=== PATIENT | male | born 1950 | race Caucasian/White ===

== ENCOUNTER 2019-03-31 19:33 | Inpatient (IN) | payer MEDICARE, OTHER ==
[~2019-03-31] VITALS: Ht 162.6 cm; Wt 53.5 kg
[2019-03-31] MEDS ORDERED: morphine 4 MG/ML VIAL IV STA (22:50)
[2019-03-31] MEDS ORDERED: ONDANSETRON 4 MG INJ IV STA (22:50)
[2019-03-31] MEDS ORDERED: SOD CHLORIDE 0.9% 500 ML IV STA (22:50)
--- NOTE | 2019-04-01 02:12 | ERD ---
ER Documentation Chief Complaint Chief Complaint REFFERED FROM CLINIC FOR ACUTE ABD PAIN X'S 1 DAY HPI This very pleasant 68-year-old male referred from his primary care clinic for acute abdominal pain for the past 24 hours. Patient has history of multiple bowel obstruction secondary to colonic anastomosis from Crohn's disease. Pain began approximately 36 hours ago and is gotten progressively worse. Associated nausea and vomiting which is nonbilious and nonbloody. No fevers no chills. No other current complaints. Abdominal pain was diffuse, nonlocalizing with no exacerbating alleviating factors mild to moderate in intensity. ROS All systems reviewed and are negative except as per history of present illness. Allergies Allergies: Coded Allergies: No Known Allergy (Unverified , 03/31/19) PMhx/Soc History of Surgery: No Anesthesia Reaction: No Hx Neurological Disorder: No Hx Respiratory Disorders: No Hx Cardiac Disorders: No Hx Psychiatric Problems: No Hx Alcohol Use: No Hx Substance Use: No Hx Tobacco Use: No Smoking Status: Never smoker Physical Exam Vitals Vital Signs Date Temp Pulse Resp B/P (MAP) Pulse Ox O2 O2 Flow FiO2 Time Delivery Rate 03/31/19 97.4 48 18 109/64 100 19:40 (79) Physical Exam Const: No acute distress Head: Atraumatic Eyes: Normal Conjunctiva ENT: Normal External Ears, Nose and Mouth. Neck: Full range of motion. No meningismus. Resp: Clear to auscultation bilaterally Cardio: Regular rate and rhythm, no murmurs Abd: Soft, non tender, non distended. Normal bowel sounds Skin: No petechiae or rashes Back: No midline or flank tenderness Ext: No cyanosis, or edema Neur: Awake and alert Psych: Normal Mood and Affect Result Diagram: 03/31/19 2304 03/31/19 230 Results 24 hrs Laboratory Tests Test 03/31/19 23:04 White Blood Count 11.2 10^3/ul Red Blood Count 4.86 10^6/ul Hemoglobin 16.3 g/dl Hematocrit 46.6 % Mean Corpuscular Volume 95.9 fl Mean Corpuscular Hemoglobin 33.5 pg Mean Corpuscular Hemoglobin Concent 35.0 g/dl Red Cell Distribution Width 12.7 % Platelet Count 361 10^3/UL Mean Platelet Volume 9.3 fl Immature Granulocytes % 0.400 % Neutrophils % 85.6 % Lymphocytes % 10.0 % Monocytes % 3.6 % Eosinophils % 0.0 % Basophils % 0.4 % Nucleated Red Blood Cells % 0.0 /100WBC Immature Granulocytes # 0.040 10^3/ul Neutrophils # 9.6 10^3/ul Lymphocytes # 1.1 10^3/ul Monocytes # 0.4 10^3/ul Eosinophils # 0.0 10^3/ul Basophils # 0.1 10^3/ul Nucleated Red Blood Cells # 0.0 10^3/ul Urine Color PATRICIO Urine Clarity SLIGHTLY CLOUDY Urine pH 5.0 Urine Specific [place] 1.033 Urine Ketones 1+ mg/dL Urine Nitrite NEGATIVE mg/dL Urine Bilirubin NEGATIVE mg/dL Urine Urobilinogen 1+ mg/dL Urine Leukocyte Esterase NEGATIVE Sandy/ul Urine Microscopic RBC 1 /HPF Urine Microscopic WBC 0 /HPF Urine Mucus MANY /HPF Urine Hemoglobin NEGATIVE mg/dL Urine Glucose NEGATIVE mg/dL Urine Total Protein 1+ mg/dl Sodium Level 138 mmol/L Potassium Level 4.1 mmol/L Chloride Level 102 mmol/L Carbon Dioxide Level 29 mmol/L Anion Gap 7 Blood Urea Nitrogen 17 mg/dl Creatinine 0.78 mg/dl Est Glomerular Filtrat Rate mL/min > 60 mL/min Glucose Level 123 mg/dl Lactic Acid Level 1.0 mmol/L Calcium Level 9.6 mg/dl Total Bilirubin 0.6 mg/dl Direct Bilirubin 0.00 mg/dl Indirect Bilirubin 0.6 mg/dl Aspartate Amino Transf (AST/SGOT) 34 IU/L Alanine Aminotransferase (ALT/SGPT) 25 IU/L Alkaline Phosphatase 82 IU/L Troponin I < 0.012 ng/ml Total Protein 7.4 g/dl Albumin 4.3 g/dl Globulin 3.10 g/dl Albumin/Globulin Ratio 1.38 Lipase 51 U/L Current Medications Medications Dose Sig/Juancarlos Start Time Status Last (Trade) Ordered Route PRN Stop Time Admin Dose Reason Admin Sodium 500 ml @ Q1H STAT 03/31/19 DC 03/31/19 Chloride 500 mls/hr IV 22:50 23:19 03/31/19 23:49 Morphine 4 mg ONCE STAT 03/31/19 DC 03/31/19 Sulfate IV 22:50 23:04 (morphine) 03/31/19 22:51 Ondansetron 4 mg ONCE STAT 03/31/19 DC 03/31/19 HCl (Zofran IV 22:50 23:04 Inj) 03/31/19 22:51 Procedures/MDM EKG: Rate/Rhythm: Normal Sinus Rhythm QRS, ST, T-waves: No changes consistent w/ acute ischemia Impression: No evidence of ischemia or arrhythmia Chest X-ray 1V Interpreted by me: Soft Tissue: No acute abnormalities Bones: No acute abnormalities Mediastinum/Cardiac Silhouette/Lungs: No acute abnormalities Medical decision makin-year-old male with evidence of small bowel obstruction on CAT scan which was what I was suspicious of given the patient's history. Patient has been admitted to Dr. Woodruff with on-call surgery consulted Dr. Yoder. NG tube has also been placed Departure Diagnosis: Primary Impression: Small bowel obstruction Condition: Serious LAURA MATOS April 01, 2019 02:12
[2019-04-01] MEDS ORDERED: UDMYL PO (03:17)
[2019-04-01] MEDS ORDERED: ALKA PO (03:17)
[2019-04-01] MEDS ORDERED: ONDANSETRON 4 MG INJ IV STA (04:28)
[2019-04-01] MEDS ORDERED: LIDOCAINE 2% VISC 15 ML CUP PO ONE (04:30)
[2019-04-01 05:15] VITALS: Ht 162.6 cm; Wt 53.5 kg
[2019-04-01] MEDS ORDERED: ONDANSETRON 4 MG INJ IV PRN (06:00)
[2019-04-01 06:13] VITALS: BP 92/56; PULSE 54; RESP 18
[2019-04-01] MEDS: SOD CHLORIDE 0.9% 1,000 ML IV SCH ×2 (06:17→16:10)
[2019-04-01 07:45] VITALS: BP 101/59; PULSE 51; RESP 18
--- NOTE | 2019-04-01 12:14 | HP ---
Date/Time of Note Date/Time of Note DATE: 04/01/19 TIME: 12:04 Assessment/Plan VTE Prophylaxis Risk score (from Ns)>0 risk: 3 SCD applied (from Ns): Yes Pharmacological prophylaxis: NA/contraindicated Pharm contraindication: surgical contra Lines/Catheters IV Catheter Type (from Nrsg): Peripheral IV Assessment/Plan Assessment/Plan -Small bowel obstruction. Continue NG tube to low wall suctioning. Continue IV fluids. Morphine as needed for pain and Zofran as needed for nausea. Dr. Yoder is following in general surgery consultation. Dr. Hamilton is asked to see patient in gastroenterology consultation. -History of Crohn's disease, status post small bowel resection. Further recommendations based on clinical course. Plan of care discussed with Dr. Espitia. Result Diagram: 04/01/19 0647 04/01/19 0648 Results 24hrs Laboratory Tests Test 03/31/19 23:04 04/01/19 06:47 04/01/19 06:48 White Blood Count 11.2 H 8.3 # Red Blood Count 4.86 4.26 L Hemoglobin 16.3 14.3 Hematocrit 46.6 41.3 L Mean Corpuscular Volume 95.9 96.9 Mean Corpuscular Hemoglobin 33.5 H 33.6 H Mean Corpuscular 35.0 34.6 Hemoglobin Concent Red Cell Distribution Width 12.7 13.2 Platelet Count 361 294 Mean Platelet Volume 9.3 9.1 Immature Granulocytes % 0.400 0.200 Neutrophils % 85.6 H 77.6 H Lymphocytes % 10.0 L 13.2 L Monocytes % 3.6 7.6 Eosinophils % 0.0 0.6 Basophils % 0.4 0.8 Nucleated Red Blood Cells % 0.0 0.0 Immature Granulocytes # 0.040 H 0.020 Neutrophils # 9.6 H 6.4 Lymphocytes # 1.1 1.1 Monocytes # 0.4 0.6 Eosinophils # 0.0 0.1 Basophils # 0.1 0.1 Nucleated Red Blood Cells # 0.0 0.0 Urine Color PATRICIO Urine Clarity SLIGHTLY CLOUDY A Urine pH 5.0 Urine Specific [place] 1.033 H Urine Ketones 1+ H Urine Nitrite NEGATIVE Urine Bilirubin NEGATIVE Urine Urobilinogen 1+ H Urine Leukocyte Esterase NEGATIVE Urine Microscopic RBC 1 Urine Microscopic WBC 0 Urine Mucus MANY A Urine Hemoglobin NEGATIVE Urine Glucose NEGATIVE Urine Total Protein 1+ H Sodium Level 138 141 Potassium Level 4.1 3.7 Chloride Level 102 107 Carbon Dioxide Level 29 30 Anion Gap 7 4 L Blood Urea Nitrogen 17 15 Creatinine 0.78 0.69 Est Glomerular Filtrat > 60 > 60 Rate mL/min Glucose Level 123 94 Lactic Acid Level 1.0 Calcium Level 9.6 8.5 Total Bilirubin 0.6 Direct Bilirubin 0.00 Indirect Bilirubin 0.6 Aspartate Amino 34 Transf (AST/SGOT) Alanine 25 Aminotransferase (ALT/SGPT) Alkaline Phosphatase 82 Troponin I < 0.012 Total Protein 7.4 Albumin 4.3 Globulin 3.10 Albumin/Globulin Ratio 1.38 Lipase 51 HPI/ROS Admit Date/Time Admit Date/Time April 01, 2019 at 01:39 Hx of Present Illness The patient is 68-year-old gentleman who was sent from primary care clinic for abdominal pain that patient developed in the past 48 hours ago which got progressively worse. Abdominal pain was diffuse, nonlocalizing with no exacerbating alleviating factors mild to moderate in intensity. Patient was di agnosed with Crohn's disease 6 years ago and underwent surgery. Patient has a history of multiple bowel obstruction in the past. Patient complains of nausea and vomiting. Patient denies any fever chills, denies any chest pain, denies shortness of breath. CT of the abdomen revealed small bowel obstruction at level of small bowel colonic anastomosis, stones are seen within the small bowel in the deep pelvis. Patient is admitted for further evaluation and management. ROS 12 point review of system is negative except for what mentioned in HPI PMH/Family/Social Past Medical History Medical History: other (Crohn's disease) Medications Current Medications Sodium Chloride 1,000 ml @ 100 mls/hr Q10H IV Last administered on 04/01/19at 06:17; Admin Dose 100 MLS/HR; Start 04/01/19 at 06:00 Morphine Sulfate (morphine) 2 mg Q4H PRN IV SEVERE PAIN LEVEL 7-10; Start 04/01/19 at 06:00 Ondansetron HCl (Zofran Inj) 4 mg Q6H PRN IV NAUSEA AND/OR VOMITING; Start 04/01/19 at 06:00 Coded Allergies: No Known Allergy (Unverified , 03/31/19) Past Surgical History Past Surgical Hx: other (Status post small bowel resection 6 years ago) Family History Significant Family History: no pertinent family hx Social History Alcohol Use: none Smoking Status: Never smoker Drug Use: none Exam/Review of Systems Vital Signs Vitals Vital Signs Date Temp Pulse Resp B/P (MAP) Pulse Ox O2 O2 Flow FiO2 Time Delivery Rate 04/01/19 98.9 51 18 101/59 99 07:45 (73) 04/01/19 Room Air 06:13 Exam Constitutional: alert, oriented Head: normocephalic Neck: supple Respiratory: clear to auscultation Cardiovascular: nl pulses Gastrointestinal: soft, tender Musculoskeletal: nl extremities to inspection Extremities: normal pulses Neurological: nl mental status PRITI SÁNCHEZ April 01, 2019 12:14
--- NOTE | 2019-04-01 12:39 | CONS ---
Assessment/Plan Assessment/Plan Hospital Course (Demo Recall) Summary Assessment and Plan: Assessment: Small bowel obstruction at level of small bowel colonic anastomosis -query if obstruction is 2/2 to CD or adhesions/stircture given findings thus far only show narrowing at anastomotic site Stones within the small bowel -Query Bilio-enteric fistula- however CT shows unremarkable gallbladder with normal LFTs- thus unlikely -Patient denies PICA Questionable history of Crohn's disease- untreated -Per patient dx 6 years ago Previous small bowel resection Plan: Solu-med 30 mg IV BID- will start steroid therapy- if no improvement obstruction may be 2.2 to adhesions vs stricture at anastomotic site. SBFT to further assess obstruction Will check CRP/ESR Further recommendations based on clinical course Patient seen in collaboration with Dr. Hamilton CC: LUDIN HAMILTON MD ; Consultation Date/Type/Reason Admit Date/Time April 01, 2019 at 01:39 Date of Consultation: April 01, 2019 Type of Consult GI Reason for Consultation SBO History of Crohn's disease Date/Time of Note DATE: 04/01/19 TIME: 12:36 Hx of Present Illness This is a 68-year-old male with reported past medical history of Crohn's disease untreated. Patient states he was diagnosed about 6 years ago after MRI?. Patient states he additionally had a colonoscopy he currently does not follow with a GI physician and has never been treated for Crohn's disease. He also has a history of small bowel obstruction with small bowel resection also 6 years ago. Patient presented to the ED with complaints of abdominal pain. He had a CT abdomen pelvis without contrast showing small bowel obstruction at small bowel and colonic anastomosis additionally there were stones seen in the small bowel. Patient without anemia LFTs are within normal limits. NG tube has been placed currently patient denies nausea/vomiting abdominal pain has improved. Prior to admission patient denies diarrhea, unintentional weight loss, tenesmus, or overt signs of GI bleed i.e. melena, hematochezia or hematemesis. Patient states his last bowel movement was yesterday described as formed and brown. Currently he is not passing any flatus Review of Systems: A 12 system, review was conducted and is negative except as noted in the HPI or here. Past Medical History Medical History: other (Crohn's disease) Home Meds Reported Medications Aspirin ([place]ily[place]) 1 Tab Tabef, 1 TAB PO, TAB 04/01/19 Magaldrate/Simethicone* (Mag-Al Plus Suspension*) 30 Ml Oral.susp, 30 ML PO Q6H PRN for GASTROINTESTINAL UPSET, ML 04/01/19 Medications Current Medications Sodium Chloride 1,000 ml @ 100 mls/hr Q10H IV Last administered on 04/01/19at 06:17; Admin Dose 100 MLS/HR; Start 04/01/19 at 06:00 Morphine Sulfate (morphine) 2 mg Q4H PRN IV SEVERE PAIN LEVEL 7-10; Start 04/01/19 at 06:00 Ondansetron HCl (Zofran Inj) 4 mg Q6H PRN IV NAUSEA AND/OR VOMITING; Start 04/01/19 at 06:00 Allergies: Coded Allergies: No Known Allergy (Unverified , 03/31/19) Past Surgical History Past Surgical Hx: other (Status post small bowel resection 6 years ago) Social History Alcohol Use: none Smoking Status: Never smoker Drug Use: none Exam/Review of Systems Exam Vitals Vital Signs Date Temp Pulse Resp B/P (MAP) Pulse Ox O2 O2 Flow FiO2 Time Delivery Rate 04/01/19 98.9 51 18 101/59 99 07:45 (73) 04/01/19 Room Air 06:13 Exam PHYSICAL EXAMINATION: GENERAL: Well developed, well nourished, alert & oriented x 3, in no acute distress SKIN: No lesions HEAD: Normocephalic, atraumatic, no tenderness. EYES: Pupils equal reactive to light and accommodation, no discharge. EARS/NOSE AND THROAT: Ears normal, nose normal.NGT in palce NECK: Supple, no masses. CHEST: Inspection within normal limits. CARDIOVASCULAR: Heart: Regular rate and rhythm GASTROINTESTINAL AND LIVER: Abdomen: Soft, non tenderness, non-distended, no hernias, no masses, no organomegaly, no ascites, no guarding, no rebound tenderness, hypoactive bowel sounds. Rectal: Deferred. EXTREMITIES: No cyanosis, clubbing or edema. Results Result Diagram: 04/01/19 0647 04/01/19 0648 Results 24hrs Laboratory Tests Test 03/31/19 23:04 04/01/19 06:47 04/01/19 06:48 White Blood Count 11.2 H 8.3 # Red Blood Count 4.86 4.26 L Hemoglobin 16.3 14.3 Hematocrit 46.6 41.3 L Mean Corpuscular Volume 95.9 96.9 Mean Corpuscular Hemoglobin 33.5 H 33.6 H Mean Corpuscular 35.0 34.6 Hemoglobin Concent Red Cell Distribution Width 12.7 13.2 Platelet Count 361 294 Mean Platelet Volume 9.3 9.1 Immature Granulocytes % 0.400 0.200 Neutrophils % 85.6 H 77.6 H Lymphocytes % 10.0 L 13.2 L Monocytes % 3.6 7.6 Eosinophils % 0.0 0.6 Basophils % 0.4 0.8 Nucleated Red Blood Cells % 0.0 0.0 Immature Granulocytes # 0.040 H 0.020 Neutrophils # 9.6 H 6.4 Lymphocytes # 1.1 1.1 Monocytes # 0.4 0.6 Eosinophils # 0.0 0.1 Basophils # 0.1 0.1 Nucleated Red Blood Cells # 0.0 0.0 Urine Color PATRICIO Urine Clarity SLIGHTLY CLOUDY A Urine pH 5.0 Urine Specific [place] 1.033 H Urine Ketones 1+ H Urine Nitrite NEGATIVE Urine Bilirubin NEGATIVE Urine Urobilinogen 1+ H Urine Leukocyte Esterase NEGATIVE Urine Microscopic RBC 1 Urine Microscopic WBC 0 Urine Mucus MANY A Urine Hemoglobin NEGATIVE Urine Glucose NEGATIVE Urine Total Protein 1+ H Sodium Level 138 141 Potassium Level 4.1 3.7 Chloride Level 102 107 Carbon Dioxide Level 29 30 Anion Gap 7 4 L Blood Urea Nitrogen 17 15 Creatinine 0.78 0.69 Est Glomerular Filtrat > 60 > 60 Rate mL/min Glucose Level 123 94 Lactic Acid Level 1.0 Calcium Level 9.6 8.5 Total Bilirubin 0.6 Direct Bilirubin 0.00 Indirect Bilirubin 0.6 Aspartate Amino 34 Transf (AST/SGOT) Alanine 25 Aminotransferase (ALT/SGPT) Alkaline Phosphatase 82 Troponin I < 0.012 Total Protein 7.4 Albumin 4.3 Globulin 3.10 Albumin/Globulin Ratio 1.38 Lipase 51 Medications Medication Current Medications Sodium Chloride 1,000 ml @ 100 mls/hr Q10H IV Last administered on 04/01/19at 06:17; Admin Dose 100 MLS/HR; Start 04/01/19 at 06:00 Morphine Sulfate (morphine) 2 mg Q4H PRN IV SEVERE PAIN LEVEL 7-10; Start 04/01/19 at 06:00 Ondansetron HCl (Zofran Inj) 4 mg Q6H PRN IV NAUSEA AND/OR VOMITING; Start 04/01/19 at 06:00 ANDREA ALCOCER April 01, 2019 12:39
--- NOTE | 2019-04-01 12:47 | CONS ---
Assessment/Plan Assessment/Plan Hospital Course (Demo Recall) CT scan was performed that showed dilated loops of small bowel up to 85 mm with evidence of stones? In the dependent small bowel in the pelvis. I do not see the thickened small bowel wall. There is evidence of anastomosis in the right lower quadrant. No free fluid. There is no biliary dilatation and/or biliary tree air. Assessment/Plan (Daily) Small bowel obstruction, most probably due to adhesions. However flare of the Crohn's disease cannot be ruled out. The etiology of stones found on the CT scan and small bowel still has to be reviewed, unlikely gallstones since there are no stones in the gallbladder and there were no evidence of air in the biliary tree. Plan is to continue n.p.o. with NG suction, monitor status vital signs and labs. Consultation Date/Type/Reason Admit Date/Time April 01, 2019 at 01:39 Date of Consultation: April 01, 2019 Type of Consult Surgical Reason for Consultation Small bowel obstruction Date/Time of Note DATE: 04/01/19 TIME: 12:36 Hx of Present Illness 68-year-old male with history of Crohn's disease, for which he underwent 6 years ago some type of bowel resection, at the other hospital since we do not have reports, never follow-up with his primary or [employer] since went. He was not placed on any medication for his Crohn's disease. He did relatively well until 9 months ago he developed an episode of small bowel obstruction and he was admitted to [facility] where he was treated conservatively for 5 - 6 days. 2 days ago he developed a similar attack of abdominal pain nausea and vomiting. His last bowel movement was 3 days ago. His last flatus was 2 days ago. Patient complains of abdominal pain nausea and vomiting. Constitutional: no complaints, improved Eyes: no complaints ENT: no complaints Respiratory: no complaints Cardiovascular: no complaints Gastrointestinal: other (See history of the present illness.) Genitourinary: no complaints Musculoskeletal: no complaints Skin: no complaints Neurologic: no complaints Endocrine: no complaints Lymphatic: no complaints Psychological: no complaints, nl mood/affect Immunologic: no complaints Past Medical History Medical History: no pertinent history, other (Crohn's disease) Home Meds Reported Medications Aspirin (Cecily-[place]) 1 Tab Tabef, 1 TAB PO, TAB 04/01/19 Magaldrate/Simethicone* (Mag-Al Plus Suspension*) 30 Ml Oral.susp, 30 ML PO Q6H PRN for GASTROINTESTINAL UPSET, ML 04/01/19 Medications Current Medications Sodium Chloride 1,000 ml @ 100 mls/hr Q10H IV Last administered on 04/01/19at 06:17; Admin Dose 100 MLS/HR; Start 04/01/19 at 06:00 Morphine Sulfate (morphine) 2 mg Q4H PRN IV SEVERE PAIN LEVEL 7-10; Start 04/01/19 at 06:00 Ondansetron HCl (Zofran Inj) 4 mg Q6H PRN IV NAUSEA AND/OR VOMITING; Start 04/01/19 at 06:00 Allergies: Coded Allergies: No Known Allergy (Unverified , 03/31/19) Past Surgical History Past Surgical Hx: other (Status post small bowel resection 6 years ago) Family History Significant Family History: no pertinent family hx Social History Alcohol Use: none Smoking Status: Never smoker Drug Use: none Exam/Review of Systems Exam Vitals Vital Signs Date Temp Pulse Resp B/P (MAP) Pulse Ox O2 O2 Flow FiO2 Time Delivery Rate 04/01/19 98.9 51 18 101/59 99 07:45 (73) 04/01/19 Room Air 06:13 Constitutional: alert, oriented, well developed Psych: no complaints, nl mood/affect Head: normocephalic, atraumatic Eyes: nl conjunctiva, EOMI, nl lids, nl sclera, PERRL ENMT: nl external ears & nose, nl lips & teeth, nl nasal mucosa & septum Neck: supple, non-tender Respiratory: clear to auscultation, normal air movement Cardiovascular: regular rate and rhythm, nl pulses Gastrointestinal: soft, nl liver, spleen, non-tender, other (Abdomen is not distended no evidence of incisional hernia, there is a well-healed mid laparotomy scar. The NG tube drains fecal material but minimal amount.) Musculoskeletal: nl extremities to inspection, nl gait and stance Extremities: normal pulses Neurological: PATROL COMMANDER II-XII intact, nl mental status, nl speech, nl strength Skin: nl turgor; No rash or lesions Lymph: nl lymph nodes Results Result Diagram: 04/01/19 0647 04/01/19 0648 Results 24hrs Laboratory Tests Test 03/31/19 23:04 04/01/19 06:47 04/01/19 06:48 White Blood Count 11.2 H 8.3 # Red Blood Count 4.86 4.26 L Hemoglobin 16.3 14.3 Hematocrit 46.6 41.3 L Mean Corpuscular Volume 95.9 96.9 Mean Corpuscular Hemoglobin 33.5 H 33.6 H Mean Corpuscular 35.0 34.6 Hemoglobin Concent Red Cell Distribution Width 12.7 13.2 Platelet Count 361 294 Mean Platelet Volume 9.3 9.1 Immature Granulocytes % 0.400 0.200 Neutrophils % 85.6 H 77.6 H Lymphocytes % 10.0 L 13.2 L Monocytes % 3.6 7.6 Eosinophils % 0.0 0.6 Basophils % 0.4 0.8 Nucleated Red Blood Cells % 0.0 0.0 Immature Granulocytes # 0.040 H 0.020 Neutrophils # 9.6 H 6.4 Lymphocytes # 1.1 1.1 Monocytes # 0.4 0.6 Eosinophils # 0.0 0.1 Basophils # 0.1 0.1 Nucleated Red Blood Cells # 0.0 0.0 Urine Color PATRICIO Urine Clarity SLIGHTLY CLOUDY A Urine pH 5.0 Urine Specific [place] 1.033 H Urine Ketones 1+ H Urine Nitrite NEGATIVE Urine Bilirubin NEGATIVE Urine Urobilinogen 1+ H Urine Leukocyte Esterase NEGATIVE Urine Microscopic RBC 1 Urine Microscopic WBC 0 Urine Mucus MANY A Urine Hemoglobin NEGATIVE Urine Glucose NEGATIVE Urine Total Protein 1+ H Sodium Level 138 141 Potassium Level 4.1 3.7 Chloride Level 102 107 Carbon Dioxide Level 29 30 Anion Gap 7 4 L Blood Urea Nitrogen 17 15 Creatinine 0.78 0.69 Est Glomerular Filtrat > 60 > 60 Rate mL/min Glucose Level 123 94 Lactic Acid Level 1.0 Calcium Level 9.6 8.5 Total Bilirubin 0.6 Direct Bilirubin 0.00 Indirect Bilirubin 0.6 Aspartate Amino 34 Transf (AST/SGOT) Alanine 25 Aminotransferase (ALT/SGPT) Alkaline Phosphatase 82 Troponin I < 0.012 Total Protein 7.4 Albumin 4.3 Globulin 3.10 Albumin/Globulin Ratio 1.38 Lipase 51 Medications Medication Current Medications Sodium Chloride 1,000 ml @ 100 mls/hr Q10H IV Last administered on 04/01/19at 06:17; Admin Dose 100 MLS/HR; Start 04/01/19 at 06:00 Morphine Sulfate (morphine) 2 mg Q4H PRN IV SEVERE PAIN LEVEL 7-10; Start 04/01/19 at 06:00 Ondansetron HCl (Zofran Inj) 4 mg Q6H PRN IV NAUSEA AND/OR VOMITING; Start 04/01/19 at 06:00 RADHA ROBLERO MD April 01, 2019 12:47
[2019-04-01 14:24] VITALS: BP 109/69; PULSE 55; RESP 18
[2019-04-01] MEDS ORDERED: IOHEXOL 300MG/ML 150 ML BTL ONE (15:12)
[2019-04-01] MEDS: morphine 2 MG INJ IV PRN ×3 (16:09→20:37)
[2019-04-01] MEDS ORDERED: LORAZEPAM 2 MG INJ IV ONE (16:30)
[2019-04-01 16:40] VITALS: BP 117/74; PULSE 64; RESP 18
[2019-04-01 19:10] VITALS: BP 103/67; PULSE 80; RESP 20
[2019-04-01] MEDS: METHYLPREDNISOLONE 40 MG INJ IV SCH (21:45)
[2019-04-02 02:10] VITALS: BP 110/65; PULSE 75; RESP 20
[2019-04-02] MEDS: SOD CHLORIDE 0.9% 1,000 ML IV SCH ×2 (02:14→12:09)
[2019-04-02] MEDS: morphine 2 MG INJ IV PRN (06:48)
[2019-04-02 08:22] VITALS: BP 112/69; PULSE 85; RESP 18
[2019-04-02] MEDS: METHYLPREDNISOLONE 40 MG INJ IV SCH (09:04)
--- NOTE | 2019-04-02 12:53 | PN ---
Date/Time of Note Date/Time of Note DATE: 04/02/19 TIME: 12:39 Assessment/Plan VTE Prophylaxis Risk score (from Ns)>0 risk: 2 SCD applied (from Nsg): Yes Pharmacological prophylaxis: other (scds) Lines/Catheters IV Catheter Type (from [facility]): Peripheral IV Assessment/Plan Hospital Course Summary Assessment and Plan: Assessment: Small bowel obstruction at level of small bowel colonic anastomosis -query if obstruction is 2/2 to CD or adhesions/stricture given findings thus far only show narrowing at anastomotic site -SBFT 04/01/19- Partial small bowel obstruction with marked dilatation of the distal ilium up to 9.3 cm Stones within the small bowel -Query Bilio-enteric fistula- however CT shows unremarkable gallbladder with normal LFTs- thus unlikely -Patient denies PICA Questionable history of Crohn's disease- untreated -Per patient dx 6 years ago Previous small bowel resection Plan: Solu-med 30 mg IV BID- d/c- no clear evidence of CD flare- spoke to the radiologist - no evidence noted in SBFT of inflammation ESR- WNL, CRP mild elevated 1.3 F/u surgical recommendations NGT to LIS for now- 10 ml out-put during ear nose throat surgeon- however has received 250- 300ml since 0700 Patient seen in collaboration with Dr. Hamilton Subjective: Course reviewed with nursing staff Patient interviewed and examined All labs, imaging and other results reviewed The patient states he feels much better today, had x3 episodes of diarrhea passing flatus. NGT out-pt 10 ml over night, however thus far has received 250- 300 ml. No c/o n/v or abd pain at this time. Pt to f/u with Gi after discharge for further evaluation regarding CD With plan for repeat colonoscopy. PHYSICAL EXAMINATION: GENERAL: Well developed, well nourished, alert & oriented x 3, in no acute distress SKIN: No lesions HEAD: Normocephalic, atraumatic, no tenderness. EYES: Pupils equal reactive to light and accommodation, no discharge. EARS/NOSE AND THROAT: Ears normal, nose normal.NGT in palce NECK: Supple, no masses. CHEST: Inspection within normal limits. CARDIOVASCULAR: Heart: Regular rate and rhythm GASTROINTESTINAL AND LIVER: Abdomen: Soft, non tenderness, non-distended, no hernias, no masses, no organomegaly, no ascites, no guarding, no rebound tenderness, hypoactive bowel sounds. Rectal: Deferred. EXTREMITIES: No cyanosis, clubbing or edema. Result Diagram: 04/02/19 0437 04/02/19 0436 Results 24hrs Laboratory Tests Test 04/02/19 04:36 04/02/19 04:37 Erythrocyte Sedimentation Rate 11.0 Sodium Level 145 H Potassium Level 3.8 Chloride Level 112 H Carbon Dioxide Level 22 Anion Gap 11 # Blood Urea Nitrogen 19 Creatinine 0.74 Est Glomerular Filtrat Rate mL/min > 60 Glucose Level 96 Calcium Level 8.8 C-Reactive Protein 1.3 H White Blood Count 7.3 Red Blood Count 4.58 L Hemoglobin 15.3 Hematocrit 44.9 Mean Corpuscular Volume 98.0 Mean Corpuscular Hemoglobin 33.4 H Mean Corpuscular Hemoglobin Concent 34.1 Red Cell Distribution Width 13.2 Platelet Count 307 Mean Platelet Volume 9.6 Immature Granulocytes % 0.300 Neutrophils % 91.8 H Lymphocytes % 6.4 L Monocytes % 1.4 Eosinophils % 0.0 Basophils % 0.1 Nucleated Red Blood Cells % 0.0 Immature Granulocytes # 0.020 Neutrophils # 6.7 Lymphocytes # 0.5 L Monocytes # 0.1 L Eosinophils # 0.0 Basophils # 0.0 Nucleated Red Blood Cells # 0.0 Exam/Review of Systems Exam Vitals Vital Signs Date Temp Pulse Resp B/P (MAP) Pulse Ox O2 O2 Flow FiO2 Time Delivery Rate 04/02/19 98.5 85 18 112/69 95 Room Air 08:22 (83) Intake and Output 04/01/19 04/01/19 04/02/19 1515:00 23:00 07:00 IntakeIntake Total 1100 ml 1300 ml OutputOutput Total 10 ml BalanceBalance 1090 ml 1300 ml Results Results 24hrs Laboratory Tests Test 04/02/19 04:36 04/02/19 04:37 Erythrocyte Sedimentation Rate 11.0 Sodium Level 145 H Potassium Level 3.8 Chloride Level 112 H Carbon Dioxide Level 22 Anion Gap 11 # Blood Urea Nitrogen 19 Creatinine 0.74 Est Glomerular Filtrat Rate mL/min > 60 Glucose Level 96 Calcium Level 8.8 C-Reactive Protein 1.3 H White Blood Count 7.3 Red Blood Count 4.58 L Hemoglobin 15.3 Hematocrit 44.9 Mean Corpuscular Volume 98.0 Mean Corpuscular Hemoglobin 33.4 H Mean Corpuscular Hemoglobin Concent 34.1 Red Cell Distribution Width 13.2 Platelet Count 307 Mean Platelet Volume 9.6 Immature Granulocytes % 0.300 Neutrophils % 91.8 H Lymphocytes % 6.4 L Monocytes % 1.4 Eosinophils % 0.0 Basophils % 0.1 Nucleated Red Blood Cells % 0.0 Immature Granulocytes # 0.020 Neutrophils # 6.7 Lymphocytes # 0.5 L Monocytes # 0.1 L Eosinophils # 0.0 Basophils # 0.0 Nucleated Red Blood Cells # 0.0 Medications Medication Current Medications Sodium Chloride 1,000 ml @ 100 mls/hr Q10H IV Last administered on 04/02/19 12:09; Admin Dose 100 MLS/HR; Start 04/01/19 at 06:00 Morphine Sulfate (morphine) 2 mg Q4H PRN IV SEVERE PAIN LEVEL 7-10 Last administered on 04/02/19at 06:48; Admin Dose 2 MG; Start 04/01/19 at 06:00 Ondansetron HCl (Zofran Inj) 4 mg Q6H PRN IV NAUSEA AND/OR VOMITING; Start 04/01/19 at 06:00 Methylprednisolone Sodium Succinate (Solu-Medrol) 30 mg Q12 IV Last administered on 04/02/19at 09:04; Admin Dose 30 MG; Start 04/01/19 at 21:00 ANDREA ALCOCER April 02, 2019 12:52
--- NOTE | 2019-04-02 16:40 | PN ---
Date/Time of Note Date/Time of Note DATE: 04/02/19 TIME: 16:39 Assessment/Plan Lines/Catheters IV Catheter Type (from [facility]): Peripheral IV Assessment/Plan Chief Complaint/Hosp Course Patient with small bowel obstruction resolved. Assessment/Plan Plan is to remove the NG tube and advance diet as tolerated. Subjective 24 Hr Interval Summary Patient is doing significantly better, passing gas and had bowel movements. Constitutional: no complaints Feeding: NPO Exam/Review of Systems Vital Signs Vitals Vital Signs Date Temp Pulse Resp B/P (MAP) Pulse Ox O2 O2 Flow FiO2 Time Delivery Rate 04/02/19 98.5 85 18 112/69 95 Room Air 08:22 (83) Intake and Output 04/01/19 04/01/19 04/02/19 1515:00 23:00 07:00 IntakeIntake Total 1100 ml 1300 ml OutputOutput Total 10 ml BalanceBalance 1090 ml 1300 ml Exam Constitutional: alert, oriented, well developed Psych: no complaints, nl mood/affect Head: normocephalic, atraumatic Eyes: nl conjunctiva, EOMI, nl lids, nl sclera ENMT: nl external ears & nose, nl lips & teeth, nl nasal mucosa & septum, mucosa pink and moist Neck: supple, non-tender Respiratory: clear to auscultation, normal air movement Cardiovascular: regular rate and rhythm, nl pulses Gastrointestinal: soft, nl liver, spleen, non-tender Musculoskeletal: nl extremities to inspection, nl gait and stance Extremities: normal pulses Neurological: [employer] II-XII intact, nl mental status, nl speech, nl strength Skin: nl turgor, rash or lesions Lymph: nl lymph nodes Results Result Diagram: 04/02/19 0437 04/02/19 0436 RADHA ROBLERO MD April 02, 2019 16:40
--- NOTE | 2019-04-02 17:02 | PN ---
Date/Time of Note Date/Time of Note DATE: 04/02/19 TIME: 16:54 Assessment/Plan VTE Prophylaxis Risk score (from Ns)>0 risk: 2 SCD applied (from Ns): Yes Pharmacological prophylaxis: NA/contraindicated Pharm contraindication: surgical contra Lines/Catheters IV Catheter Type (from Nrsg): Peripheral IV Assessment/Plan Hospital Course Pain is adequately controlled patient denies any nausea vomiting, continues NG tube to low wall suctioning, continue IV fluids, monitor electrolytes, follow-up on GI and surgical recommendations. Assessment/Plan -Small bowel obstruction. Continue NG tube to low wall suctioning. Continue IV fluids. Morphine as needed for pain and Zofran as needed for nausea. Dr. Yoder is following in general surgery consultation. Dr. Hamilton is following in gastroenterology consultation. -History of Crohn's disease, status post small bowel resection. Further recommendations based on clinical course. Plan of care discussed with Dr. Espitia. Result Diagram: 04/02/19 0437 04/02/19 0436 Results 24hrs Laboratory Tests Test 04/02/19 04:36 04/02/19 04:37 Erythrocyte Sedimentation Rate 11.0 Sodium Level 145 H Potassium Level 3.8 Chloride Level 112 H Carbon Dioxide Level 22 Anion Gap 11 # Blood Urea Nitrogen 19 Creatinine 0.74 Est Glomerular Filtrat Rate mL/min > 60 Glucose Level 96 Calcium Level 8.8 C-Reactive Protein 1.3 H White Blood Count 7.3 Red Blood Count 4.58 L Hemoglobin 15.3 Hematocrit 44.9 Mean Corpuscular Volume 98.0 Mean Corpuscular Hemoglobin 33.4 H Mean Corpuscular Hemoglobin Concent 34.1 Red Cell Distribution Width 13.2 Platelet Count 307 Mean Platelet Volume 9.6 Immature Granulocytes % 0.300 Neutrophils % 91.8 H Lymphocytes % 6.4 L Monocytes % 1.4 Eosinophils % 0.0 Basophils % 0.1 Nucleated Red Blood Cells % 0.0 Immature Granulocytes # 0.020 Neutrophils # 6.7 Lymphocytes # 0.5 L Monocytes # 0.1 L Eosinophils # 0.0 Basophils # 0.0 Nucleated Red Blood Cells # 0.0 Exam/Review of Systems Exam Vitals Vital Signs Date Temp Pulse Resp B/P (MAP) Pulse Ox O2 O2 Flow FiO2 Time Delivery Rate 04/02/19 98.5 85 18 112/69 95 Room Air 08:22 (83) Intake and Output 04/01/19 04/01/19 04/02/19 1515:00 23:00 07:00 IntakeIntake Total 1100 ml 1300 ml OutputOutput Total 10 ml BalanceBalance 1090 ml 1300 ml Exam Constitutional: alert, oriented Respiratory: clear to auscultation Cardiovascular: nl pulses Gastrointestinal: soft, tender Musculoskeletal: nl extremities to inspection Extremities: normal pulses Neurological: nl mental status Results Results 24hrs Laboratory Tests Test 04/02/19 04:36 04/02/19 04:37 Erythrocyte Sedimentation Rate 11.0 Sodium Level 145 H Potassium Level 3.8 Chloride Level 112 H Carbon Dioxide Level 22 Anion Gap 11 # Blood Urea Nitrogen 19 Creatinine 0.74 Est Glomerular Filtrat Rate mL/min > 60 Glucose Level 96 Calcium Level 8.8 C-Reactive Protein 1.3 H White Blood Count 7.3 Red Blood Count 4.58 L Hemoglobin 15.3 Hematocrit 44.9 Mean Corpuscular Volume 98.0 Mean Corpuscular Hemoglobin 33.4 H Mean Corpuscular Hemoglobin Concent 34.1 Red Cell Distribution Width 13.2 Platelet Count 307 Mean Platelet Volume 9.6 Immature Granulocytes % 0.300 Neutrophils % 91.8 H Lymphocytes % 6.4 L Monocytes % 1.4 Eosinophils % 0.0 Basophils % 0.1 Nucleated Red Blood Cells % 0.0 Immature Granulocytes # 0.020 Neutrophils # 6.7 Lymphocytes # 0.5 L Monocytes # 0.1 L Eosinophils # 0.0 Basophils # 0.0 Nucleated Red Blood Cells # 0.0 Medications Medication Current Medications Sodium Chloride 1,000 ml @ 100 mls/hr Q10H IV Last administered on 04/02/19at 12:09; Admin Dose 100 MLS/HR; Start 04/01/19 at 06:00 Morphine Sulfate (morphine) 2 mg Q4H PRN IV SEVERE PAIN LEVEL 7-10 Last administered on 04/02/19at 06:48; Admin Dose 2 MG; Start 04/01/19 at 06:00 Ondansetron HCl (Zofran Inj) 4 mg Q6H PRN IV NAUSEA AND/OR VOMITING; Start 04/01/19 at 06:00 PRITI SÁNCHEZ April 02, 2019 17:02
[2019-04-02] MEDS: D5W-0.45 NACL + KCL 20 MEQ 1,000 ML IV SCH (18:05)
[2019-04-02 20:12] VITALS: BP 127/63; PULSE 80; RESP 20
[2019-04-03 02:30] VITALS: BP 118/60; PULSE 88; RESP 17
[2019-04-03] MEDS: D5W-0.45 NACL + KCL 20 MEQ 1,000 ML IV SCH ×3 (02:55→23:50)
[2019-04-03 08:03] VITALS: BP 117/65; PULSE 60; RESP 18
--- NOTE | 2019-04-03 09:14 | PN ---
Date/Time of Note Date/Time of Note DATE: 04/03/19 TIME: 09:12 Assessment/Plan VTE Prophylaxis Risk score (from Ns)>0 risk: 2 SCD applied (from [facility] [place] [facility]): Yes Pharmacological prophylaxis: other Pharm contraindication: other Lines/Catheters IV [facility] ([facility] Peripheral IV Assessment/Plan Assessment/Plan -Small bowel obstruction. Continue NG tube to low wall suctioning. - Dr. Yoder is following in general surgery consultation. - Dr. Hamilton is following in gastroenterology consultation. - Continue IV fluids. - Morphine as needed for pain - Zofran as needed for nausea. - Mild Hypernatremia -monitor am BMP -History of Crohn's disease, status post small bowel resection. Further recommendations based on clinical course. Plan of care discussed with Dr. Espitia. Result Diagram: 04/03/199 04/03/19428 Results 24hrs Laboratory Tests Test 04/03/19 04:29 White Blood Count 4.1 #L Red Blood Count 3.89 L Hemoglobin 12.9 L Hematocrit 38.8 L Mean Corpuscular Volume 99.7 Mean Corpuscular Hemoglobin 33.2 H Mean Corpuscular Hemoglobin Concent 33.2 Red Cell Distribution Width 13.7 Platelet Count 249 Mean Platelet Volume 9.6 Immature Granulocytes % 0.200 Neutrophils % 49.0 Lymphocytes % 33.2 Monocytes % 15.4 H Eosinophils % 1.0 Basophils % 1.2 Nucleated Red Blood Cells % 0.0 Immature Granulocytes # 0.010 Neutrophils # 2.0 Lymphocytes # 1.4 Monocytes # 0.6 Eosinophils # 0.0 Basophils # 0.1 Nucleated Red Blood Cells # 0.0 Sodium Level 145 H Potassium Level 4.3 Chloride Level 117 H Carbon Dioxide Level 25 Anion Gap 3 #L Blood Urea Nitrogen 19 Creatinine 0.66 Est Glomerular Filtrat Rate mL/min > 60 Glucose Level 108 Calcium Level 8.3 L Magnesium Level 2.3 Subjective 24 Hr Interval Summary Free Text/Dictation afebrile NGT connected to low intermittent suction no events reported overnight dw staff Constitutional: requiring IVF ENT: no complaints Respiratory: no complaints Cardiovascular: no complaints Gastrointestinal: pain Genitourinary: no complaints Musculoskeletal: no complaints Skin: no complaints Exam/Review of Systems Exam Vitals Vital Signs Date Temp Pulse Resp B/P (MAP) Pulse Ox O2 O2 Flow FiO2 Time Delivery Rate 04/03/19 97.5 60 18 117/65 96 Room Air 08:03 (82) Intake and Output 04/02/19 04/02/19 04/03/19 1515:00 23:00 07:00 IntakeIntake Total 600 ml 600 ml 1150 ml BalanceBalance 600 ml 600 ml 1150 ml Constitutional: alert, oriented, well developed Psych: nl mood/affect Eyes: nl lids, nl sclera ENMT: nl external ears & nose Neck: non-tender Respiratory: normal air movement Cardiovascular: other (s1s2) Gastrointestinal: soft, other (surgical abdomen) Musculoskeletal: nl extremities to inspection Extremities: normal pulses Neurological: nl mental status, nl speech Results Results 24hrs Laboratory Tests Test 04/03/19 04:29 White Blood Count 4.1 #L Red Blood Count 3.89 L Hemoglobin 12.9 L Hematocrit 38.8 L Mean Corpuscular Volume 99.7 Mean Corpuscular Hemoglobin 33.2 H Mean Corpuscular Hemoglobin Concent 33.2 Red Cell Distribution Width 13.7 Platelet Count 249 Mean Platelet Volume 9.6 Immature Granulocytes % 0.200 Neutrophils % 49.0 Lymphocytes % 33.2 Monocytes % 15.4 H Eosinophils % 1.0 Basophils % 1.2 Nucleated Red Blood Cells % 0.0 Immature Granulocytes # 0.010 Neutrophils # 2.0 Lymphocytes # 1.4 Monocytes # 0.6 Eosinophils # 0.0 Basophils # 0.1 Nucleated Red Blood Cells # 0.0 Sodium Level 145 H Potassium Level 4.3 Chloride Level 117 H Carbon Dioxide Level 25 Anion Gap 3 #L Blood Urea Nitrogen 19 Creatinine 0.66 Est Glomerular Filtrat Rate mL/min > 60 Glucose Level 108 Calcium Level 8.3 L Magnesium Level 2.3 Medications Medication Current Medications Morphine Sulfate (morphine) 2 mg Q4H PRN IV SEVERE PAIN LEVEL 7-10 Last administered on 04/02/19at 06:48; Admin Dose 2 MG; Start 04/01/19 at 06:00 Ondansetron HCl (Zofran Inj) 4 mg Q6H PRN IV NAUSEA AND/OR VOMITING; Start 04/01/19 at 06:00 Potassium Chloride/Dextrose/ Sod Cl 1,000 ml @ 100 mls/hr Q10H IV Last administered on 04/03/19at 02:55; Admin Dose 100 MLS/HR; Start 04/02/19 at 17:00 SHA WALTER April 03, 2019 09:14
--- NOTE | 2019-04-03 16:47 | PN ---
Date/Time of Note Date/Time of Note DATE: 04/03/19 TIME: 16:44 Assessment/Plan VTE Prophylaxis Risk score (from Ns)>0 risk: 2 SCD applied (from Nsg): Yes Pharmacological prophylaxis: heparin Lines/Catheters IV Catheter Type (from Nrs): Peripheral IV Assessment/Plan Assessment/Plan Assessment: Small bowel obstruction at level of small bowel colonic anastomosis -query if obstruction is 2/2 to CD or adhesions/stricture given findings thus far only show narrowing at anastomotic site -SBFT 04/01/19- Partial small bowel obstruction with marked dilatation of the distal ilium up to 9.3 cm Stones within the small bowel -Query Bilio-enteric fistula- however CT shows unremarkable gallbladder with normal LFTs- thus unlikely -Patient denies PICA Questionable history of Crohn's disease- untreated -Per patient dx 6 years ago Previous small bowel resection Plan: Advance diet to soft ESR- WNL, CRP mild elevated 1.3 F/u surgical recommendations If patient tolerates the diet can be discharged and followed as an outpatient Patient seen in collaboration with Dr. Hamilton Subjective: Course reviewed with nursing staff Patient interviewed and examined All labs, imaging and other results reviewed The patient is doing well today. NG tube has been DC'd. He tolerated clear liquid diet well. Denies abdominal pain, nausea or vomiting. Will advance diet to soft. Will f/u with Gi after discharge for further evaluation regarding CD. Colonoscopy as an outpatient. PHYSICAL EXAMINATION: GENERAL: Well developed, well nourished, alert & oriented x 3, in no acute distress SKIN: No lesions HEAD: Normocephalic, atraumatic, no tenderness. EYES: Pupils equal reactive to light and accommodation, no discharge. EARS/NOSE AND THROAT: Ears normal, nose normal. NECK: Supple, no masses. CHEST: Inspection within normal limits. CARDIOVASCULAR: Heart: Regular rate and rhythm GASTROINTESTINAL AND LIVER: Abdomen: Soft, non tenderness, non-distended, no hernias, no masses, no organomegaly, no ascites, no guarding, no rebound tenderness, hypoactive bowel sounds. Rectal: Deferred. EXTREMITIES: No cyanosis, clubbing or edema. Result Diagram: 04/03/19 0429 04/03/19 0429 Results 24hrs Laboratory Tests Test 04/03/19 04:29 White Blood Count 4.1 #L Red Blood Count 3.89 L Hemoglobin 12.9 L Hematocrit 38.8 L Mean Corpuscular Volume 99.7 Mean Corpuscular Hemoglobin 33.2 H Mean Corpuscular Hemoglobin Concent 33.2 Red Cell Distribution Width 13.7 Platelet Count 249 Mean Platelet Volume 9.6 Immature Granulocytes % 0.200 Neutrophils % 49.0 Lymphocytes % 33.2 Monocytes % 15.4 H Eosinophils % 1.0 Basophils % 1.2 Nucleated Red Blood Cells % 0.0 Immature Granulocytes # 0.010 Neutrophils # 2.0 Lymphocytes # 1.4 Monocytes # 0.6 Eosinophils # 0.0 Basophils # 0.1 Nucleated Red Blood Cells # 0.0 Sodium Level 145 H Potassium Level 4.3 Chloride Level 117 H Carbon Dioxide Level 25 Anion Gap 3 #L Blood Urea Nitrogen 19 Creatinine 0.66 Est Glomerular Filtrat Rate mL/min > 60 Glucose Level 108 Calcium Level 8.3 L Magnesium Level 2.3 CC: LUDIN HAMILTON MD ; Exam/Review of Systems Exam Vitals Vital Signs Date Temp Pulse Resp B/P (MAP) Pulse Ox O2 O2 Flow FiO2 Time Delivery Rate 04/03/19 97.5 60 18 117/65 96 Room Air 08:03 (82) Intake and Output 04/02/19 04/02/19 04/03/19 1515:00 23:00 07:00 IntakeIntake Total 600 ml 600 ml 1150 ml BalanceBalance 600 ml 600 ml 1150 ml Results Results 24hrs Laboratory Tests Test 04/03/19 04:29 White Blood Count 4.1 #L Red Blood Count 3.89 L Hemoglobin 12.9 L Hematocrit 38.8 L Mean Corpuscular Volume 99.7 Mean Corpuscular Hemoglobin 33.2 H Mean Corpuscular Hemoglobin Concent 33.2 Red Cell Distribution Width 13.7 Platelet Count 249 Mean Platelet Volume 9.6 Immature Granulocytes % 0.200 Neutrophils % 49.0 Lymphocytes % 33.2 Monocytes % 15.4 H Eosinophils % 1.0 Basophils % 1.2 Nucleated Red Blood Cells % 0.0 Immature Granulocytes # 0.010 Neutrophils # 2.0 Lymphocytes # 1.4 Monocytes # 0.6 Eosinophils # 0.0 Basophils # 0.1 Nucleated Red Blood Cells # 0.0 Sodium Level 145 H Potassium Level 4.3 Chloride Level 117 H Carbon Dioxide Level 25 Anion Gap 3 #L Blood Urea Nitrogen 19 Creatinine 0.66 Est Glomerular Filtrat Rate mL/min > 60 Glucose Level 108 Calcium Level 8.3 L Magnesium Level 2.3 Medications Medication Current Medications Morphine Sulfate (morphine) 2 mg Q4H PRN IV SEVERE PAIN LEVEL 7-10 Last administered on 04/02/19at 06:48; Admin Dose 2 MG; Start 04/01/19 at 06:00 Ondansetron HCl (Zofran Inj) 4 mg Q6H PRN IV NAUSEA AND/OR VOMITING; Start 04/01/19 at 06:00 Potassium Chloride/Dextrose/ Sod Cl 1,000 ml @ 100 mls/hr Q10H IV Last administered on 04/03/19at 14:16; Admin Dose 100 MLS/HR; Start 04/02/19 at 17:00 NINO HARGROVE NP April 03, 2019 16:47
[2019-04-03 19:55] VITALS: BP 108/67; PULSE 53; RESP 20
[2019-04-04 02:05] VITALS: BP 105/58; PULSE 51; RESP 20
[2019-04-04 07:07] VITALS: BP 94/59; PULSE 48; RESP 14
[2019-04-04] MEDS: D5W-0.45 NACL + KCL 20 MEQ 1,000 ML IV SCH (09:00)
--- NOTE | 2019-04-04 12:01 | DS ---
Date/Time of Note Date/Time of Note DATE: 04/04/19 TIME: 11:59 Discharge Summary Admission/Discharge Info Admit Date/Time April 01, 2019 at 01:39 Discharge Date/Time 04/04/19 Discharge Diagnosis -Small bowel obstruction. Continue NG tube to low wall suctioning. Continue IV fluids. Morphine as needed for pain and Zofran as needed for nausea. Dr. Yoder is following in general surgery consultation. Dr. Hamilton is following in gastroenterology consultation. -History of Crohn's disease, status post small bowel resection. Patient Condition: Good Consults surgery Procedures none Hx of Present Illness Patient with a history of abdominal surgery comes in with small bowel obstruction. Hospital Course Patient with a history of abdominal surgery comes in with small bowel obstruction. He was treated with IV hydration and pain medication. Surgery was consulted but patient gradually improved on his own. By the time of discharge, patient had no further pain and is able to tolerate oral nutrition. -Small bowel obstruction. Continue NG tube to low wall suctioning. Continue IV fluids. Morphine as needed for pain and Zofran as needed for nausea. Dr. Yoder is following in general surgery consultation. Dr. Hamilton is following in gastroenterology consultation. -History of Crohn's disease, status post small bowel resection. Home Meds Reported Medications Aspirin ([place]) 1 Tab Tabef, 1 TAB PO, TAB 04/01/19 Magaldrate/Simethicone* (Mag-Al Plus Suspension*) 30 Ml Oral.susp, 30 ML PO Q6H PRN for GASTROINTESTINAL UPSET, ML 04/01/19 Primary Care Provider Care Physician No Primary Pending Labs Laboratory Tests Test 04/04/19 04:35 White Blood Count 4.7 10^3/ul (4.8-10.8) Red Blood Count 3.74 10^6/ul (4.70-6.10) Hemoglobin 12.3 g/dl (14.0-18.0) Hematocrit 36.9 % (42.0-52.0) Mean Corpuscular Volume 98.7 fl (82.0-101.0) Mean Corpuscular Hemoglobin 32.9 pg (29.0-33.0) Mean Corpuscular Hemoglobin Concent 33.3 g/dl (32.0-37.0) Red Cell Distribution Width 13.0 % (11.5-14.5) Platelet Count 223 10^3/UL (140-415) Mean Platelet Volume 9.9 fl (7.4-10.4) Immature Granulocytes % 0.200 % (0.001-0.429) Neutrophils % 60.7 % (39.0-77.0) Lymphocytes % 27.5 % (15.0-51.0) Monocytes % 7.8 % (0.0-11.0) Eosinophils % 3.0 % (0.0-7.0) Basophils % 0.8 % (0.0-2.0) Nucleated Red Blood Cells % 0.0 /100WBC (0.0-0.0) Immature Granulocytes # 0.010 10^3/ul (0.0-0.031) Neutrophils # 2.9 10^3/ul (1.6-7.5) Lymphocytes # 1.3 10^3/ul (0.8-2.9) Monocytes # 0.4 10^3/ul (0.3-0.9) Eosinophils # 0.1 10^3/ul (0.0-0.5) Basophils # 0.0 10^3/ul (0.0-0.1) Nucleated Red Blood Cells # 0.0 10^3/ul (0.0-0.0) Sodium Level 139 mmol/L (135-144) Potassium Level 3.9 mmol/L (3.5-5.1) Chloride Level 110 mmol/L (97-110) Carbon Dioxide Level 26 mmol/L (21-31) Anion Gap 3 (5-13) Blood Urea Nitrogen 13 mg/dl (7-20) Creatinine 0.58 mg/dl (0.61-1.24) Est Glomerular Filtrat Rate mL/min > 60 mL/min (>60) Glucose Level 97 mg/dl (70-220) Calcium Level 8.0 mg/dl (8.4-10.2) WALT DUNBAR Apr 04, 2019 12:01
--- NOTE | 2019-04-04 12:57 | PN ---
Date/Time of Note Date/Time of Note DATE: 04/04/19 TIME: 12:54 Assessment/Plan VTE Prophylaxis Risk score (from Ns)>0 risk: 3 SCD applied (from Ns): Yes Pharmacological prophylaxis: heparin Lines/Catheters IV Catheter Type (from Nrs): Peripheral IV Assessment/Plan Assessment/Plan Assessment: Small bowel obstruction at level of small bowel colonic anastomosis -query if obstruction is 2/2 to CD or adhesions/stricture given findings thus far only show narrowing at anastomotic site -SBFT 04/01/19- Partial small bowel obstruction with marked dilatation of the distal ilium up to 9.3 cm Stones within the small bowel -Query Bilio-enteric fistula- however CT shows unremarkable gallbladder with normal LFTs- thus unlikely -Patient denies PICA Questionable history of Crohn's disease- untreated -Per patient dx 6 years ago Previous small bowel resection Plan: Follow-up as an outpatient for colonoscopy Patient seen in collaboration with Dr. Hamilton Subjective: Course reviewed with nursing staff Patient interviewed and examined All labs, imaging and other results reviewed The patient is doing well . Tolerated regular diet without abdominal pain, nausea or vomiting. Discussed the need for outpatient follow-up. Patient verbalizes understanding. PHYSICAL EXAMINATION: GENERAL: Well developed, well nourished, alert & oriented x 3, in no acute distress SKIN: No lesions HEAD: Normocephalic, atraumatic, no tenderness. EYES: Pupils equal reactive to light and accommodation, no discharge. EARS/NOSE AND THROAT: Ears normal, nose normal. NECK: Supple, no masses. CHEST: Inspection within normal limits. CARDIOVASCULAR: Heart: Regular rate and rhythm GASTROINTESTINAL AND LIVER: Abdomen: Soft, non tenderness, non-distended, no hernias, no masses, no organomegaly, no ascites, no guarding, no rebound tenderness, hypoactive bowel sounds. Rectal: Deferred. EXTREMITIES: No cyanosis, clubbing or edema. Result Diagram: 04/04/195 04/04/19 043 Results 24hrs Laboratory Tests Test 04/04/19 04:35 White Blood Count 4.7 L Red Blood Count 3.74 L Hemoglobin 12.3 L Hematocrit 36.9 L Mean Corpuscular Volume 98.7 Mean Corpuscular Hemoglobin 32.9 Mean Corpuscular Hemoglobin Concent 33.3 Red Cell Distribution Width 13.0 Platelet Count 223 Mean Platelet Volume 9.9 Immature Granulocytes % 0.200 Neutrophils % 60.7 Lymphocytes % 27.5 Monocytes % 7.8 Eosinophils % 3.0 Basophils % 0.8 Nucleated Red Blood Cells % 0.0 Immature Granulocytes # 0.010 Neutrophils # 2.9 Lymphocytes # 1.3 Monocytes # 0.4 Eosinophils # 0.1 Basophils # 0.0 Nucleated Red Blood Cells # 0.0 Sodium Level 139 Potassium Level 3.9 Chloride Level 110 Carbon Dioxide Level 26 Anion Gap 3 L Blood Urea Nitrogen 13 Creatinine 0.58 L Est Glomerular Filtrat Rate mL/min > 60 Glucose Level 97 Calcium Level 8.0 L CC: LUDIN HAMILTON MD ; Exam/Review of Systems Exam Vitals Vital Signs Date Temp Pulse Resp B/P (MAP) Pulse Ox O2 O2 Flow FiO2 Time Delivery Rate 04/04/19 97.7 48 14 94/59 (71) 98 Room Air 07:07 Intake and Output 04/03/19 04/03/19 04/04/19 1515:00 23:00 07:00 IntakeIntake Total 850 ml 1000 ml OutputOutput Total 400 ml BalanceBalance 850 ml 600 ml Results Results 24hrs Laboratory Tests Test 04/04/19 04:35 White Blood Count 4.7 L Red Blood Count 3.74 L Hemoglobin 12.3 L Hematocrit 36.9 L Mean Corpuscular Volume 98.7 Mean Corpuscular Hemoglobin 32.9 Mean Corpuscular Hemoglobin Concent 33.3 Red Cell Distribution Width 13.0 Platelet Count 223 Mean Platelet Volume 9.9 Immature Granulocytes % 0.200 Neutrophils % 60.7 Lymphocytes % 27.5 Monocytes % 7.8 Eosinophils % 3.0 Basophils % 0.8 Nucleated Red Blood Cells % 0.0 Immature Granulocytes # 0.010 Neutrophils # 2.9 Lymphocytes # 1.3 Monocytes # 0.4 Eosinophils # 0.1 Basophils # 0.0 Nucleated Red Blood Cells # 0.0 Sodium Level 139 Potassium Level 3.9 Chloride Level 110 Carbon Dioxide Level 26 Anion Gap 3 L Blood Urea Nitrogen 13 Creatinine 0.58 L Est Glomerular Filtrat Rate mL/min > 60 Glucose Level 97 Calcium Level 8.0 L Medications Medication Current Medications Morphine Sulfate (morphine) 2 mg Q4H PRN IV SEVERE PAIN LEVEL 7-10 Last administered on 04/02/19at 06:48; Admin Dose 2 MG; Start 04/01/19 at 06:00 Ondansetron HCl (Zofran Inj) 4 mg Q6H PRN IV NAUSEA AND/OR VOMITING; Start 04/01/19 at 06:00 Potassium Chloride/Dextrose/ Sod Cl 1,000 ml @ 100 mls/hr Q10H IV Last administered on 04/03/19at 23:50; Admin Dose 100 MLS/HR; Start 04/02/19 at 17:00 NINO HARGROVE NP Apr 04, 2019 12:57
--- NOTE | 2019-04-04 13:01 | PN ---
Date/Time of Note Date/Time of Note DATE: 04/04/19 TIME: 13:00 Assessment/Plan Lines/Catheters IV Catheter Type (from Nrs): Peripheral IV Assessment/Plan Chief Complaint/Hosp Course Patient with small bowel obstruction resolved. Assessment/Plan Agree with discharge. She will need follow-up with [facility] floorperson. Subjective 24 Hr Interval Summary Pain with resolved small bowel obstruction probably secondary to adhesions after bowel surgery for Crohn disease. Patient tolerates diet and has bowel movements. Constitutional: no complaints Feeding: advancing diet Exam/Review of Systems Vital Signs Vitals Vital Signs Date Temp Pulse Resp B/P (MAP) Pulse Ox O2 O2 Flow FiO2 Time Delivery Rate 04/04/19 97.7 48 14 94/59 (71) 98 Room Air 07:07 Intake and Output 04/03/19 04/03/19 04/04/19 1515:00 23:00 07:00 IntakeIntake Total 850 ml 1000 ml OutputOutput Total 400 ml BalanceBalance 850 ml 600 ml Exam Gastrointestinal: soft, nl liver, spleen, non-tender Results Result Diagram: 04/04/19 0435 04/04/19 0435 RADHA ROBLERO MD Apr 04, 2019 13:01
== END 2019-04-04 14:25 | disposition home or self-care (01) | DRG 386 ==
LOC: E/R 19:33 → MS1 04-01 01:39
PROVIDERS: ADMIT Internal Medicine; ATTEND Internal Medicine
DX: K50.012 Crohn's disease of small intestine with intestinal obstruction (principal); K56.49 Other impaction of intestine; Z98.0 Intestinal bypass and anastomosis status
CPT/HCPCS: 36415; 71045; 74176; 74250; 80048; 80053; 81001; 83605; 83690; 83735; 84484; 85025; 85651; 86140; 93005; 96374; 96375; J2060; J2270; J2405; J2920; J3480; J7030; J7040; Q9967